=== PATIENT | female | born 1980 | race Two or more races ===

== ENCOUNTER 2019-01-09 08:21 | Emergency (ER) | payer BC ==
[2019-01-09] MEDS ORDERED: MORPHINE SULFATE 10 MG/ML INJ IV ONE ×2 (08:39→09:30)
[2019-01-09] MEDS ORDERED: ONDANSETRON HCL INJ/PF 4 MG/2 ML SDV IV ONE (08:39)
[2019-01-09] MEDS ORDERED: NORMAL SALINE 1000 ML 1,000 ML IV ONE (08:39)
[2019-01-09] MEDS ORDERED: KETOROLAC TROMETHAMINE INJ/PF 30 MG/1 ML SDV IV ONE (08:40)
--- NOTE | 2019-01-09 09:12 | ER Document Report ---
Entered by DARLENE CROWELL SCRIBE 01/09/19 0844 Acting as scribe for:JAJA HERNANDEZ MD ED Fall - General Chief Complaint: Fall Injury Stated Complaint: FALL/ARM AND SHOULDER PAIN Time Seen by Provider: 01/09/19 08:32 Primary Care Provider: JESSE LUCAS MD [Primary Care Provider] - Follow up as needed Mode of Arrival: Ambulatory Information source: Patient, Relative Notes: Patient is a 38 year old female with heart palpitations presents to the emergency department complaining of right shoulder pain secondary a mechanical trip and fall. Patient states she was walking down carpeted stairs when she slipped. She states she grabbed the railing with her right arm and proceeded to fall approximately 8 steps. She denies any head trauma or a loss of consciousness. TRAVEL OUTSIDE OF THE [place] IN LAST 30 DAYS: No - Related data Allergies/Adverse Reactions: No Known Allergies Allergy (Verified 01/09/19 08:43) Past Medical History - General Information source: Patient - Social History Smoking Status: Never Smoker Cigarette use (# per day): No Chew tobacco use (# tins/day): No Smoking Education Provided: No Frequency of alcohol use: None Family History: Reviewed & Not Pertinent - Past Medical History Cardiac Medical History: Reports: Other - Reports palpitations Review of Systems - Review of Systems Constitutional: No symptoms reported EENT: No symptoms reported Cardiovascular: No symptoms reported Respiratory: No symptoms reported Gastrointestinal: No symptoms reported Genitourinary: No symptoms reported Female Genitourinary: No symptoms reported Musculoskeletal: See HPI Skin: No symptoms reported Hematologic/Lymphatic: No symptoms reported Neurological/Psychological: No symptoms reported -: Yes All other systems reviewed and negative Physical Exam - Vital signs Vitals: Temp Pulse Resp BP Pulse Ox 98.2 F 95 18 126/79 H 99 01/09/19 08:22 01/09/19 08:22 01/09/19 08:22 01/09/19 08:22 01/09/19 08:22 - Notes Notes: GENERAL: Alert, tearful interacts well. No acute distress. HEAD: Normocephalic, atraumatic. EYES: Pupils equal, round, and reactive to light. Extraocular movements intact. ENT: Oral mucosa moist, tongue midline. NECK: Full range of motion. Supple. Trachea midline. LUNGS: Clear to auscultation bilaterally, no wheezes, rales, or rhonchi. No respiratory distress. HEART: Regular rate and rhythm. No murmurs, gallops, or rubs. ABDOMEN: Soft, non-tender. Non-distended. Bowel sounds present in all 4 quadrants. No guarding, rigidity, or rebound. EXTREMITIES: Moves all 4 extremities spontaneously. Obvious deformity of the right anterior shoulder, good sensations. No edema, radial and dorsalis pedis pulses 2/4 bilaterally. No cyanosis. NEUROLOGICAL: Alert and oriented x3. Normal speech. PSYCH: Tearful. SKIN: Warm, dry, normal turgor. No rashes or lesions noted. Course - Vital Signs Vital signs: Temp Pulse Resp BP Pulse Ox 98.2 F 95 23 H 120/69 100 01/09/19 08:22 01/09/19 08:22 01/09/19 10:09 01/09/19 10:09 01/09/19 10:09 - Diagnostic Test Radiology reviewed: Image reviewed, Reports reviewed - Right shoulder x-ray shows anterior dislocation small lucency in the glenoid fossa. Procedures - Conscious Sedation Conscious sedation Time started: 10:22 Consent obtained: Yes Indication: Dislocated shoulder reduction Normal healthy pt.: P1. - ASA Classification Airway Evaluation: Normal anatomy Mallampati Classification: Class 1 Used during procedure: Suction available, IV access obtained, Pulse ox on pt., phototypesetting equipment monitor on pt. Medications administered: Diprivan Reversal agents: None I personally performed/intraservice time: Sedation, Procedure, 30 min or less Complications: No - Joint Reduction/Fracture Care Right Shoulder Time completed: 10:25 Consent obtained: Yes Conscious sedation: Yes Pre-procedure NV exam: Yes Fracture: Other - A small lucency was seen in the glenoid fossa, but no avulsion site was seen on the humeral head. Post-procedure NV exam: Yes Post-reduction x-ray: Joint reduced Reduction attempts: 1 Complications: No Discharge - Discharge Clinical Impression: Anterior shoulder dislocation Qualifiers: Encounter type: initial encounter Laterality: right Qualified Code(s): S43.014A - Anterior dislocation of right humerus, initial encounter Condition: Stable Disposition: HOME, SELF-CARE Additional Instructions: Shoulder Dislocation: You've had a shoulder dislocation. Even after the shoulder is put back in place, careful care is needed to prevent further problems. As the shoulder dislocated, injury to the joint itself occurred. This must be allowed to heal. The usual treatment is a shoulder immobilizing sling. If this is your first dislocation, it must be left in place until the doctor allows you to remove it. This is important. Ice pack the shoulder frequently. One of the most important aspects of care for a shoulder dislocation is mobility exercises and strengthening exercises. You'll start these when it's safe to start moving the shoulder joint. Be sure to keep your follow-up appointments. If you develop numbness in the arm or hand, weakness of the hand muscles, arm swelling, or arm discoloration, call the doctor or return immediately. Wear the shoulder immobilizer all the time. Use ice packs to the shoulder off and on throughout the day. Take ibuprofen or Aleve and Tylenol for pain as needed. Call [facility] for surgery to schedule an appointment with the orthopedic doctors. RETURN TO THE EMERGENCY ROOM IF ANY NEW OR WORSENING SYMPTOMS. Referrals: JESSE LUCAS MD [Primary Care Provider] - Follow up as needed [facility] [Provider Group] - Follow up in 3-5 days (Call today to schedule an appointment.) Scribe Attestation: 01/09/19 09:15 I personally performed the services described in the documentation, reviewed and edited the documentation which was dictated to the scribe in my presence, and it accurately records my words and actions. I personally performed the services described in the documentation, reviewed and edited the documentation which was dictated to the scribe in my presence, and it accurately records my words and actions.
--- NOTE | 2019-01-09 09:21 | RADIOLOGY REPORT (SQ) ---
EXAM DESCRIPTION: SHOULDER RIGHT 2 OR MORE VIEWS COMPLETED DATE/TIME: 01/09/2019 9:13 am REASON FOR STUDY: Shoulder dislocation COMPARISON: None. NUMBER OF VIEWS: Two views. TECHNIQUE: AP and Y-view images acquired of the right shoulder. LIMITATIONS: None. FINDINGS: MINERALIZATION: Normal. BONES: Humeral head is displaced inferiorly and medially in relation to the glenoid fossa. There is a small lucency noted in the glenoid. No definite fracture. JOINTS: Dislocation as discussed above. VISUALIZED LUNGS AND RIBS: No pneumothorax. No rib fracture. SOFT TISSUES: No radiopaque foreign body. OTHER: No other significant finding. IMPRESSION: Dislocated right humeral head as described. Lucency in the glenoid fossa is noted. No definite cortical fractures. TECHNICAL DOCUMENTATION: JOB ID: [id number]- All Rights Reserved Reading location - IP/workstation name: [email or web address]
[2019-01-09] MEDS ORDERED: PROPOFOL INJ 200 MG/20 ML VIAL IV ONE (09:38)
--- NOTE | 2019-01-09 10:53 | RADIOLOGY REPORT (SQ) ---
EXAM DESCRIPTION: SHOULDER RIGHT 1 VIEW COMPLETED DATE/TIME: 01/09/2019 10:43 am REASON FOR STUDY: Post reduction COMPARISON: Earlier the same day. NUMBER OF VIEWS: One view. TECHNIQUE: AP images acquired of the right shoulder. LIMITATIONS: None. FINDINGS: Previously described dislocation has been reduced. Again no definite fracture. Subtle michelle cency in the glenoid is again noted. IMPRESSION: Previously described dislocation has been reduced. TECHNICAL DOCUMENTATION: JOB ID: [id number] [employer]- All Rights Reserved Reading location - IP/workstation name: [email or web address]
[2019-01-09 11:27] VITALS: BP 120/57
== END 2019-01-09 11:53 | disposition home or self-care (01) ==
LOC: ER 08:21
DX: S43.014A Anterior dislocation of right humerus, initial encounter (principal); W10.8XXA Fall (on) (from) other stairs and steps, initial encounter
CPT/HCPCS: 23650; 96376; 99283; 96361; 99152; 96374; 96375; 73020; 73030; L3650 ×2; J1885; J2270; J2405; J7030; J2704